=== PATIENT | male | born 1965 | race Caucasian/White ===

== ENCOUNTER 2018-11-25 05:45 | Day surgery (SDC) | payer OTHER ==
[~2018-11-25 05:45] MED LIST: ANCEF/STERILE WATER 2 GM/20 ML IV NR
[2018-11-25] MEDS ORDERED: LACTATED RINGERS 1,000 ML IV SCH (06:00)
[2018-11-25] MEDS ORDERED: ZOFRAN IV PRN (07:05)
[2018-11-25] MEDS ORDERED: SUBLIMAZE IV PRN (07:05)
[2018-11-25] MEDS ORDERED: SUBLIMAZE IV NR (07:05)
--- NOTE | 2018-11-25 07:06 | Anesthesia Day of Surgery ---
Anesthesia Day of Surgery - Day of Surgery Patient Examined: Yes Patient H&P Reviewed: Yes Patient is NPO: Yes
--- NOTE | 2018-11-25 07:09 | Anesthesia Consultation ---
Anesthesia Consult and Med Hx Date of service: 11/25/18 - Airway Anesthetic Teeth Evaluation: Good ROM Head & Neck: Adequate Mallampati Class: Class III Intubation Access Assessment: Probably Good - Pre-Operative Health Status ASA Pre-Surgery Classification: ASA2 Proposed Anesthetic Plan: General Nerve Block: IS - Pulmonary Hx Smoking: No Hx Sleep Apnea: No (ELVA PRE SCREEN HIGH RISK) - Cardiovascular System Hx Hypertension: Yes (X 4 MONTHS) - Central Nervous System Hx Back Pain: Yes - Other Systems Hx Cancer: No - Additional Comments Anesthesia Medical History Comments: +Med Clearance
[2018-11-25] MEDS ORDERED: ADRENALIN IV ONE (07:19)
[2018-11-25] MEDS ORDERED: MARCAINE-EPI/PF 0.5%-1:200,000 INFILTRATI ONE (07:23)
[2018-11-25] MEDS ORDERED: SUBLIMAZE ONE ×2 (07:39→09:58)
[2018-11-25] MEDS ORDERED: VERSED ONE (07:39)
[2018-11-25] MEDS ORDERED: XYLOCAINE MPF 2% ONE (07:39)
[2018-11-25] MEDS ORDERED: DIPRIVAN 10 MG/ML IV ONE (07:39)
[2018-11-25] MEDS ORDERED: VERSED IV NR (08:00)
[2018-11-25] MEDS ORDERED: ZEMURON IV ONE (08:10)
[2018-11-25] MEDS ORDERED: ADRENALINE P/F IV ONE (08:23)
[2018-11-25] MEDS ORDERED: NACL 0.9% IR ONE ×2 (08:23)
[2018-11-25] MEDS ORDERED: NEO SYNEPHRINE ONE ×2 (08:54→10:14)
[2018-11-25] MEDS ORDERED: LACTATED RINGERS 1,000 ML ONE (09:55)
--- NOTE | 2018-11-25 11:31 | Short Stay Summary ---
Short Stay Documentation Date of service: 11/25/18 - Allergies and Medications Current Medications: Allergies No Known Allergies Allergy (Verified 10/16/18 14:37) Home Medications Medication Instructions Recorded Confirmed Last Taken Type Lisinopril [Zestril TAB] 40 mg PO QDAY 10/16/18 11/24/18 11/24/18 17:00 History Rosuvastatin Calcium [Crestor] 20 mg PO DAILY 10/16/18 11/24/18 11/24/18 17:00 History amLODIPine [Norvasc] 10 mg PO DAILY 10/16/18 11/24/18 11/24/18 17:00 History glyBURIDE [Diabeta] 2.5 mg PO DAILY 10/16/18 11/24/18 11/24/18 17:00 History Active Medications Cefazolin Sodium (Ancef/Sterile Water 2 Gm/20 Ml) 2 gm IV PREOP NR Stop: 11/25/18 23:59 Fentanyl (Sublimaze) 50 mcg IV Q5MIN PRN PRN Reason: Pain , Severe (7-10) Stop: 11/25/18 22:00 Fentanyl (Sublimaze) 100 mcg IV ONCE NR Stop: 11/25/18 12:00 Last Admin: 11/25/18 07:27 Dose: 100 mcg Documented by: Lactated Ringer's (Lactated Ringers) 1,000 mls @ 100 mls/hr IV DIRECT WILLIS Last Admin: 11/25/18 06:35 Dose: 100 mls/hr Documented by: Midazolam HCl (Versed) 2 mg IV PREOP NR Stop: 11/25/18 23:59 Last Admin: 11/25/18 07:27 Dose: 2 mg Documented by: Ondansetron HCl (Zofran) 4 mg IV ONCE PRN PRN Reason: Nausea And Vomiting - Brief post op/procedure progress note Date of procedure: 11/25/18 Pre-op diagnosis: persistent left shoulder pain, AC joint hypertrophy, rotator cuff tear Post-op diagnosis: same Procedure: left shoulder arthroscopy, subacromial decompression, distal clavicle excision, arthroscopic rotator cuff repair Anesthesia: GETA Findings: as above Surgeon: WAGNER FLORES Estimated blood loss: minimal Pathology: none Condition: stable - Hospital course Hospital course: no perioperative complications - Disposition Condition at discharge: Good Disposition: DC-01 TO HOME OR SELFCARE Short Stay Discharge Plan Follow up with: PCP,FOLLOW UP, MD [Primary Care Provider] - 7 Days
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
[2018-11-25 12:23] VITALS: BP 141/80
--- NOTE | 2018-11-25 13:46 | Post Anesthesia Evaluation ---
- Post Anesthesia Evaluation Patient Participated: Yes Airway Patent: Yes Stable Respiratory Function: Yes Nausea/Vomiting: No Temp > 96.8F: Yes Pain Manageable: Yes Adequeate Hydration: Yes Anesthesia Complications: No Block Receding Appropriately: No (For post-op pain) Patient on Ventilator: No
== END 2018-11-25 13:10 | disposition home or self-care (01) ==
LOC: OR 05:45
PROVIDERS: ATTEND Orthopaedic Surgery
DX: M75.112 Incomplete rotator cuff tear or rupture of left shoulder, not specified as traumatic (principal); M75.52 Bursitis of left shoulder; M75.42 Impingement syndrome of left shoulder; I10 Essential (primary) hypertension; E78.00 Pure hypercholesterolemia, unspecified; Z98.890 Other specified postprocedural states; Z79.899 Other long term (current) drug therapy
CPT/HCPCS: 29823; 29824; 29826; 29827; 64415; 82962; A4217; C1713; J0171; J0690; J2250; J2370; J2405; J2704; J3010; J7120; L1830